=== PATIENT | female | born 1950 | race Caucasian/White ===

== ENCOUNTER → 2017-01-24 | Outpatient (CLI) | payer OTHER | END | disposition home or self-care (01) | LOC: CFH 11:11 | PROVIDERS: ATTEND Internal Medicine | DX: Z12.31 Encounter for screening mammogram for malignant neoplasm of breast (principal) | CPT/HCPCS: G0202 ==

== ENCOUNTER → 2017-10-04 | Outpatient (CLI) | payer OTHER ==
[~2017-10-04] MED LIST: ATOR40TA78 PO; CALC600T4 PO; CHOL40002 PO; CITA20TA5 PO; CYAN25003 PO; METH500T7 PO; MULT-124 PO; PANT40TA5 PO; TRAZ50TA18 PO; WARF7.5T6 PO
[2017-10-04 10:46] LABS: HEMATOCRIT 42.8 % (34.6-47.8); HEMOGLOBIN 14.4 g/dL (11.7-16.4); WHITE BLOOD COUNT 8.3 x10^3/uL (3.4-10)
== END | disposition home or self-care (01) ==
LOC: STAR 09:11
PROVIDERS: ATTEND Orthopaedic Surgery
DX: Z01.818 Encounter for other preprocedural examination (principal); M76.12 Psoas tendinitis, left hip; R79.1 Abnormal coagulation profile
CPT/HCPCS: 36415; 85025; 85610; 85730; 93005

== ENCOUNTER 2017-10-11 06:58 | Day surgery (SDC) | payer OTHER ==
[~2017-10-11] VITALS: Ht 162.6 cm; Wt 97.2 kg
[~2017-10-11 06:58] MED LIST changes: +EPINEPHRINE TOPICAL SOLN 1 MG/ML, 30ML ONE; +ROPIvacaine/PF 0.5%, 30 ML ONE
[2017-10-11] MEDS ORDERED: LACTATED RINGERS 1,000 ML IV SCH (07:20)
[2017-10-11] MEDS ORDERED: FENTANYL PF 250 MCG/5ML ONE (07:38)
[2017-10-11] MEDS ORDERED: MIDAZOLAM 1 MG/ML, 2ML ONE (07:38)
[2017-10-11] MEDS ORDERED: HYDROmorphone 1 MG/ML, 1ML IV PRN (08:00)
[2017-10-11] MEDS ORDERED: MEPERIDINE/PF 25MG/0.5ML IVPush PRN (08:00)
[2017-10-11] MEDS ORDERED: hydrALAzine 20 MG/ML, 1ML IV PRN (08:00)
[2017-10-11] MEDS ORDERED: OXYcodone 5 MG/5 ML ORAL.SOL UDC PO PRN (08:00)
[2017-10-11] MEDS ORDERED: LORazepam 2 MG/ML, 1ML IVPush PRN (08:00)
[2017-10-11] MEDS ORDERED: PROMETHAZINE 25 MG/ML, 1ML IV PRN (08:00)
[2017-10-11] MEDS ORDERED: ALBUTEROL SULFATE 2.5 MG/3 ML NPPB PRN (08:00)
[2017-10-11] MEDS ORDERED: LABETALOL 5MG/ML, 20ML IV PRN (08:00)
[2017-10-11 08:01] VITALS: BP 141/81
[2017-10-11] MEDS ORDERED: DEXAMETHASONE 4 MG/ML, 1ML ONE (08:20)
[2017-10-11] MEDS ORDERED: PROPOFOL 10 MG/ML, 20ML ONE (08:20)
[2017-10-11] MEDS ORDERED: CEFAZOLIN 1,000 MG ONE ×2 (08:20)
[2017-10-11] MEDS ORDERED: ONDANSETRON 2MG/ML, 2ML ONE ×2 (08:20→10:35)
[2017-10-11] MEDS ORDERED: SCOPOLAMINE PATCH, 1.5MG PATCH.TD72 TD ONE ×2 (08:48)
[2017-10-11] MEDS ORDERED: LIDOCAINE-MPF 2% ,5ML ONE (08:54)
[2017-10-11] MEDS ORDERED: OXYcodone 5 MG/5 ML ORAL.SOL UDC ONE (09:41)
[2017-10-11] MEDS ORDERED: FENTANYL PF 100 MCG/2ML ONE (09:41)
[2017-10-11] MEDS ORDERED: KETOROLAC 30 MG/1 ML ONE (09:41)
[2017-10-11] MEDS: FENTANYL PF 100 MCG/2ML IV PRN ×2 (09:45→09:55)
[2017-10-11] MEDS ORDERED: KETOROLAC 30 MG/1 ML IV PRN (10:00)
[2017-10-11] MEDS ORDERED: HYDROmorphone 2 MG/ML, 1ML ONE (10:05)
[2017-10-11] MEDS ORDERED: ONDANSETRON 2MG/ML, 2ML IVPush PRN (11:00)
== END 2017-10-11 12:45 ==
LOC: OUT 06:58
PROVIDERS: ATTEND Orthopaedic Surgery
DX: M25.852 Other specified joint disorders, left hip (principal); E78.5 Hyperlipidemia, unspecified; Z96.642 Presence of left artificial hip joint; Z88.1 Allergy status to other antibiotic agents; Z88.8 Allergy status to other drugs, medicaments and biological substances; Z86.718 Personal history of other venous thrombosis and embolism; Z79.01 Long term (current) use of anticoagulants
CPT/HCPCS: 29862; 36415; 73501; 76000; 85610; 85730; J0690; J1100; J1170; J1885; J2250; J2405; J2704; J2795; J3010; J3490; J7120

== ENCOUNTER → 2018-01-16 | Outpatient (CLI) | payer OTHER ==
[~2018-01-16] MED LIST changes: -EPINEPHRINE TOPICAL SOLN 1 MG/ML, 30ML ONE; -ROPIvacaine/PF 0.5%, 30 ML ONE
== END | disposition home or self-care (01) ==
LOC: CFH 11:05
PROVIDERS: ATTEND Family Medicine
DX: Z12.31 Encounter for screening mammogram for malignant neoplasm of breast (principal)
CPT/HCPCS: 77063; 77067

== ENCOUNTER → 2019-09-19 | Outpatient (CLI) | payer BC, OTHER ==
[~2019-09-19] MED LIST changes: -CITA20TA5 PO; +CITA20TA6 PO; -TRAZ50TA18 PO; +TRAZ50TA66 PO; +WARF7.5T46 PO; -WARF7.5T6 PO
== END | disposition home or self-care (01) ==
LOC: CFH 09:53
PROVIDERS: ATTEND Orthopaedic Surgery
DX: M47.816 Spondylosis without myelopathy or radiculopathy, lumbar region (principal); M41.86 Other forms of scoliosis, lumbar region; Z87.891 Personal history of nicotine dependence
CPT/HCPCS: 72110